=== PATIENT | female | born 1990 ===

== ENCOUNTER 2020-06-13 00:18 | Emergency (ER) | payer BC ==
[~2020-06-13] VITALS: Ht 175.3 cm; Wt 56.8 kg
[2020-06-13 00:26] VITALS: BP 106/72
== END 2020-06-13 00:36 | disposition home or self-care (01) ==
LOC: ER 00:19
DX: J06.9 Acute upper respiratory infection, unspecified (principal); R09.89 Other specified symptoms and signs involving the circulatory and respiratory systems; J00 Acute nasopharyngitis [common cold]; Z72.89 Other problems related to lifestyle
CPT/HCPCS: 36415; 99283